=== PATIENT | female | born 1955 | race Caucasian/White ===

== ENCOUNTER 2022-10-12 04:34 | Day surgery (SDC) | payer OTHER ==
[2022-10-11 17:24] VITALS: BMI 34.3
[2022-10-12] MEDS ORDERED: MIDAZOLAM HCL 2 MG/2 ML SINGLE DOSE VIAL ONE (14:13)
[2022-10-12] MEDS ORDERED: FENTANYL CITRATE/PF 50 MCG/ML VIAL ONE (14:14)
[2022-10-12] MEDS ORDERED: PROPOFOL 20 ML ONE (14:15)
[2022-10-12] MEDS ORDERED: PROMETHAZINE HCL 25 MG/1 ML VIAL IVPUSH PRN (15:15)
[2022-10-12] MEDS ORDERED: oxyCODONE HCL 5 MG TABLET PO PRN (15:15)
[2022-10-12] MEDS ORDERED: ONDANSETRON 4 MG/2 ML VIAL IVPUSH PRN (15:15)
[2022-10-12] MEDS ORDERED: LACTATED RINGERS SOLUTION 1,000 ML IV SCH (15:15)
[2022-10-12] MEDS ORDERED: FENTANYL CITRATE/PF 50 MCG/ML VIAL IVPUSH PRN (15:15)
[2022-10-12] MEDS ORDERED: oxyCODONE HCL 5 MG TABLET ONE (16:52)
[2022-10-12 19:08] VITALS: RESP 20; TEMP 97.8
[2022-10-12 19:10] VITALS: BP 122/71; PULSE 80
== END 2022-10-12 17:18 | disposition home or self-care (01) ==
LOC: JASU-SURG 04:34
PROVIDERS: ATTEND Student in an Organized Health Care Education/Training Program
PROC: 0UB98ZX Excision of Uterus, Via Natural or Artificial Opening Endoscopic, Diagnostic (ICD-10-PCS; principal; 2022-10-12 14:09)
DX: N95.0 Postmenopausal bleeding (principal); N84.0 Polyp of corpus uteri
CPT/HCPCS: 88305-TC; 94760